=== PATIENT | male | born 1965 | race Caucasian/White ===

== ENCOUNTER 2017-08-13 12:53 | Emergency (ER) | payer OTHER ==
[2017-08-13] MEDS ORDERED: SODIUM CHLORIDE 0.9% 1,000 ML IV ONE ×2 (14:07→17:14)
[2017-08-13] MEDS ORDERED: HYDROmorphone 1 MG/ML SYRINGE IVP STA (14:07)
[2017-08-13] MEDS ORDERED: ONDANSETRON 4 MG/2 ML VIAL IVP STA (14:07)
--- NOTE | 2017-08-13 14:11 | ED Physician Documentation ---
PD HPI ABD PAIN - Stated complaint Stated Complaint: SIDE PX - Chief complaint Chief Complaint: General - History obtained from History obtained from: Patient - History of Present Illness Timing - onset: Today Timing - duration: Hours Timing - details: Abrupt onset, Still present Quality: Sharp, Pain Location: LUQ Radiation: Lower back, Left flank Improved by: Laying still Associated symptoms: Nausea Similar symptoms before: Diagnosis (uric acid kidney stones) Recently seen: Not recently seen - Additional information Additional information: 51-year-old [place] who has a history of uric acid stones and a prior history of PTSD and CVA with left-sided deficit has developed acute left-sided pain today. He has had stone retrieval previously he has had stent placement previously and has been more than 1 year since he has passed a stone. He is previously passed about 3-4 stones per year. Review of Systems Constitutional: denies: Fever Eyes: denies: Decreased vision Ears: denies: Ear pain Nose: denies: Congestion Throat: denies: Sore throat Cardiac: denies: Chest pain / pressure Respiratory: denies: Dyspnea, Cough GI: reports: Abdominal Pain, Nausea. denies: Vomiting, Constipation, Diarrhea : denies: Dysuria, Frequency Skin: denies: Rash, Lesions Musculoskeletal: reports: Back pain. denies: Neck pain, Extremity pain Neurologic: denies: Generalized weakness, Focal weakness, Numbness PD PAST MEDICAL HISTORY - Past Medical History Cardiovascular: Congestive heart failure, Hypertension, High cholesterol, Other Respiratory: Asthma, Shortness of breath, Sleep apnea, CPAP use Neuro: CVA Endocrine/Autoimmune: Type 2 diabetes GI: Diverticulitis, Other : Incontinence, Kidney stones HEENT: Other Psych: Depression, Anxiety, Post traumatic stress disorder Musculoskeletal: Osteoarthritis, Gout, Other Derm: Other - Past Surgical History Past Surgical History: Yes General: Gastric surgery, Colonoscopy, Other - Present Medications Home Medications: Ambulatory Orders Medication Instructions Recorded Confirmed Allopurinol 450 mg PO DAILY 03/25/13 08/13/17 Amlodipine Besylate 10 mg PO DAILY 03/25/13 08/13/17 Aspirin Chewable [St Dipesh 81 mg PO DAILY 03/25/13 08/13/17 Aspirin] Atorvastatin Calcium 20 mg PO DAILY 03/25/13 08/13/17 Carvedilol [Coreg] 25 mg PO BID 03/25/13 08/13/17 Fluticasone 220 Mcg [Flovent] 1 puffs INH BID 03/25/13 08/13/17 Telmisartan [Micardis] 80 mg PO DAILY 03/25/13 08/13/17 Omeprazole [Prilosec] 40 mg PO HS 10/04/13 08/13/17 Beclomethasone Dipropionate [Qvar] 1 puffs INH DAILY PRN 07/23/14 08/13/17 Multivitamin [Multivitamins] 1 cap ORAL DAILY 07/23/14 08/13/17 Oxycodone HCl/Acetaminophen 1 tab ORAL QID PRN 07/23/14 08/13/17 [Percocet 10-325 mg Tablet] Vit D3-Vit K/Berberine/Hops 1 tab ORAL DAILY 07/23/14 07/23/14 [Ostera Tablet] - Allergies Allergies/Adverse Reactions: Allergies Allergy/AdvReac Type Severity Reaction Status Date / Time Penicillins AdvReac Severe Respiratory Verified 08/13/17 13:04 hydrochlorothiazide AdvReac Unknown Verified 08/13/17 13:04 lisinopril AdvReac Respiratory Verified 08/13/17 13:04 - Social History Does the pt smoke?: No Smoking Status: Never smoker Does the pt drink ETOH?: No Does the pt have substance abuse?: No - Immunizations Immunizations are current?: Yes PD ED PE NORMAL - Vitals Vital signs reviewed: Yes (Hypertensive marked) - General General: Alert and oriented X 3, Well developed/nourished, Other (The patient is periodically grunting in pain. ) - HEENT HEENT: Atraumatic, PERRL, EOMI - Neck Neck: Supple, no meningeal sign - Cardiac Cardiac: RRR, No murmur - Respiratory Respiratory: No respiratory distress - Abdomen Abdomen: Soft, Non tender, No organomegaly - Back Back: No CVA TTP, No spinal TTP - Derm Derm: Normal color, Warm and dry, No rash - Extremities Extremities: No deformity, No edema - Neuro Neuro: No motor deficit, No sensory deficit Eye Opening: Spontaneous Motor: Obeys Commands Verbal: Oriented GCS Score: 15 - Psych Psych: Normal mood, Normal affect Results - Vitals Vitals: Vital Signs - 24 hr 08/13/17 08/13/17 08/13/17 13:01 14:51 16:16 Temperature 36.9 C Heart Rate 89 101 H 94 Respiratory 20 20 18 Rate Blood Pressure 191/118 H 211/116 H 203/115 H O2 Saturation 98 95 99 08/13/17 08/13/17 08/13/17 16:42 17:05 17:20 Temperature Heart Rate 94 Respiratory 18 Rate Blood Pressure 194/113 H 197/111 H 192/120 H O2 Saturation 96 Oxygen O2 Source Room air - Labs Labs: Laboratory Tests 08/13/17 08/13/17 08/13/17 14:39 14:39 14:39 WBC 13.7 H RBC 5.28 Hgb 16.0 Hct 46.7 MCV 88.3 MCH 30.4 MCHC 34.4 RDW 12.6 Plt Count 214 MPV 10.1 Neut # 11.8 H Lymph # 1.0 L Pratt # 0.7 Eos # 0.0 Baso # 0.1 Absolute Nucleated RBC 0.03 Nucleated RBC % 0.2 Sodium 138 Potassium 4.0 Chloride 101 Carbon Dioxide 25 Anion Gap 12.0 BUN 13 Creatinine 0.9 Estimated GFR (MDRD) 89 Glucose 139 H Calcium 9.0 Total Bilirubin 0.7 AST 24 ALT 17 Alkaline Phosphatase 88 Troponin I < 0.04 Total Protein 7.9 Albumin 4.5 Globulin 3.4 Albumin/Globulin Ratio 1.3 Lipase 10 L - Rads (name of study) CT abd/pel without Radiology: Prelim report reviewed (Impression: 1. Bilateral nephrolithiasis. 5 x 8 x 8 mm stone left mid renal pelvis which may be causing intermittent obstruction at the left ureteropelvic junction. 2. 2.5 x 1.0 cm right adrenal adenoma. 3. Colonic diverticulosis.), EMP read indepedently, See rad report Procedures - Bedside sono Bedside sono by EMP: With use of bedside ultrasound the left kidney is imaged there does appear to be some hydronephrosis and the kidney is sonographically nontender. PD MEDICAL DECISION MAKING - ED course Complexity details: reviewed old records, reviewed results, re-evaluated patient , considered differential, d/w patient Departure - Departure Clinical Impression: Ureterolithiasis Condition: Stable Instructions: ED Stone Renal W Colic Follow-Up: Pato Abebe MD [Primary Care Provider] - Comments: Today it appears you have a large stone 6 x 8 mm at the junction of the collecting system and the ureter. This stone looks like it is trying to make its way through but is likely going to have some difficulty passing. Follow-up with urologist this week.
[2017-08-13 14:43] LABS: BASOPHILS # (AUTO) 0.1 10^3/uL (0.0-0.1); BASOPHILS % (AUTO) 0.4 %; EOSINOPHILS % (AUTO) 0.2 %; LYMPHOCYTES % (AUTO) 7.6 %; MEAN CORPUSCULAR HEMOGLOBIN 30.4 pg (27.0-31.0); MEAN CORPUSCULAR HGB CONC 34.4 g/dL (32.0-36.0); MEAN CORPUSCULAR VOLUME 88.3 fL (80.0-94.0); MEAN PLATELET VOLUME 10.1 fL (7.4-11.4); MONOCYTES # (AUTO) 0.7 10^3/uL (0.0-1.0); MONOCYTES % (AUTO) 5.2 %; NEUTROPHILS # (AUTO) 11.8 10^3/uL (1.5-6.6); NEUTROPHILS % (AUTO) 86.6 %; PLT - PLATELET COUNT 214 10^3/uL (130-450); RED BLOOD COUNT 5.28 10^6/uL (4.70-6.10); RED CELL DISTRIBUTION WIDTH 12.6 % (12.0-15.0); WHITE BLOOD COUNT 13.7 x10^3/uL (4.8-10.8)
--- NOTE | 2017-08-13 14:52 | CT Preliminary Report ---
Exam: CT ABDOMEN/PELVIS W/O IMPRESSION: 1. Bilateral nephrolithiasis. 5 x 8 x 8 mm stone mid left renal pelvis which may be causing intermitt ent obstruction at the left ureteropelvic junction. 2. 2.5 x 1.0 cm right adrenal adenoma. 3. Colonic diverticulosis. [facility] SITE ID: [id number]
[2017-08-13 14:59] LABS: ALBUMIN 4.5 g/dL (3.2-5.5); ALBUMIN/GLOBULIN RATIO 1.3 (1.0-2.2); BILIRUBIN,TOTAL 0.7 mg/dL (0.2-1.0); CREATININE 0.9 mg/dL (0.6-1.2); TOTAL PROTEIN 7.9 g/dL (6.7-8.2)
--- NOTE | 2017-08-13 15:00 | CT Report ---
EXAM: CT ABDOMEN AND PELVIS EXAM DATE: 08/13/2017 02:27 PM. CLINICAL HISTORY: History of stones. Left flank pain which began this morning. COMPARISONS: 03/26/2013. Chest CT 10/04/2013. TECHNIQUE: Routine helical CT imaging was performed through the abdomen and pelvis. IV contrast: Amt/ type. Enteric contrast: No. Reconstructions: Coronal and sagittal. In accordance with CT protocol optimization, one or more of the following dose reduction techniques w ere utilized for this exam: automated exposure control, adjustment of mA and/or KV based on patient s ize, or use of iterative reconstructive technique. FINDINGS: Lung Bases: Current study does not include the area where the equivocal 3 mm subpleural density right lower lobe was noted on the chest CT. Lung bases are clear. Liver: Normal. No masses. Gallbladder/Bile Ducts: Cholecystectomy. No biliary duct dilatation. Spleen: Normal. Pancreas: Normal. Adrenal Glands: Stable 2.5 x 1.0 cm low density lesion right adrenal measuring -51 Hounsfield units c onsistent with adenoma. 1 x 3 mm calcification along the rim of this lesion. Normal left adrenal. Kidneys: Multiple 3 mm and smaller stones in the right calyceal system. Right kidney and right ureter otherwise normal. Multiple 8 mm and smaller stones in the normal caliber left calyceal system. 8 x 5 x 8 mm stone mid l eft renal pelvis. 2 cm left renal cyst. Mild left peripelvic and left perirenal edema. Left ureter is normal. Peritoneal Cavity/Bowel: Interval removal of the lap band. New bariatric surgery. Diverticuli off the colon. Large and small bowel normal caliber without associated inflammatory easley es. No free air, fluid nor adenopathy. The appendix is well visualized and normal. Pelvic Organs: Normal. The bladder and visualized pelvic organs are within normal limits. Vasculature: No aneurysms or other significant abnormality. Bones: No significant abnormality. Other: None. IMPRESSION: 1. Bilateral nephrolithiasis. 5 x 8 x 8 mm stone mid left renal pelvis, which may be causing intermit tent obstruction at the left ureteropelvic junction. 2. 2.5 x 1.0 cm right adrenal adenoma. 3. Colonic diverticulosis. [facility] Referring Provider Line: [phone] SITE ID: [id number]
[2017-08-13] MEDS ORDERED: LIDOCAINE VISCOUS 2% 15 ML UDC MM STA (15:25)
[2017-08-13] MEDS ORDERED: MAG HYDROX/AL HYDROX/SIMETH 30 ML UDC PO STA (15:25)
[2017-08-13] MEDS ORDERED: CARVEDILOL 12.5 MG TABLET PO STA (16:21)
[2017-08-13] MEDS ORDERED: amLODIPine 5 MG TABLET PO STA (16:23)
[2017-08-13] MEDS ORDERED: PANTOPRAZOLE 40 MG VIAL IVP STA (18:03)
[2017-08-13 18:29] LABS: BILIRUBIN,URINE NEGATIVE (NEGATIVE); GLUCOSE, URINE (UA) NEGATIVE (NEGATIVE); KETONES,URINE (UA) NEGATIVE (NEGATIVE); LEUKOCYTE ESTERASE, URINE NEGATIVE (NEGATIVE); NITRITE,URINE NEGATIVE (NEGATIVE); OCCULT BLOOD,URINE TRACE-LYSE (NEGATIVE); PH,URINE 5.5 PH (5.0-7.5); PROTEIN,URINE NEGATIVE (NEGATIVE); UROBILINOGEN,URINE 0.2 (NORMAL) E.U./dL (NORMAL)
[2017-08-13 18:31] LABS: CLARITY,URINE CLEAR (CLEAR)
[2017-08-13] MEDS ORDERED: LIDOCAINE-MPF 2% 8 ML in SODIUM CHLORIDE 0.9% 50 ML IV STA (19:01)
[2017-08-13 20:06] VITALS: BP 153/87
--- NOTE | 2017-08-13 20:13 | ED Physician Documentation ---
ED Addendum - Addendum Addendum: 08/13/17 20:11 Called for increased pain. Given IV lidocaine with resolution of pain. Has oxycodone at home, but will run out. Will rx a small amount for home. No UTI on UA. Will follow up with PCP and urology for further care. Patient counseled regarding signs and symptoms for which I believe and urgent re-evaluation would be necessary. Patient with good understanding of and agreement to plan and is comfortable going home at this time This document was made in part using voice recognition software. While efforts are made to proofread this document, sound alike and grammatical errors may occur. Departure - Departure Disposition: Home, Self Care Clinical Impression: Ureterolithiasis Condition: Stable Instructions: ED Stone Renal W Colic Follow-Up: Pato Abebe MD [Primary Care Provider] - Prescriptions: Ibuprofen [Motrin] 800 mg PO Q8H PRN #30 tablet PRN Reason: PAIN &/OR FEVER Oxycodone HCl/Acetaminophen [Percocet 5-325 mg Tablet] 1 - 2 each PO Q6H PRN # 20 tablet PRN Reason: pain Comments: Today it appears you have a large stone 6 x 8 mm at the junction of the collecting system and the ureter. This stone looks like it is trying to make its way through but is likely going to have some difficulty passing. Follow-up with urologist this week. Do not drink alcohol or drive while on narcotic pain medicine. Note that many narcotic pain relievers also contain tylenol/acetaminophen. Please ensure that your total dose of acetaminophen from all sources does not exceed 3 grams (3000mg) per day. You may constipated on this medication, take a stool softener such as "Colace" twice a day while you are on it. Also recommend a eftd-nse-aqgrzav laxative such as senna or MiraLAX any day that you do not have a bowel movement. If you received narcotic pain medication in the emergency department, do not drive or operate machinery for the next 24 hours. Discharge Date/Time: 08/13/17 20:25
== END 2017-08-13 20:25 | disposition home or self-care (01) ==
LOC: ED 12:53
DX: N20.1 Calculus of ureter (principal); I11.0 Hypertensive heart disease with heart failure; I50.9 Heart failure, unspecified; E78.00 Pure hypercholesterolemia, unspecified; I69.998 Other sequelae following unspecified cerebrovascular disease; Z79.82 Long term (current) use of aspirin
CPT/HCPCS: 36415; 74176; 80053; 81003; 83690; 84484; 85025; 96361; 96374; 96375; 99284; A9270; J1170; J7040; 81001; 87086

== ENCOUNTER 2017-08-19 10:06 | Emergency (ER) | payer OTHER ==
[2017-08-19] MEDS ORDERED: SALINE ENEMA 133 ML BOTTLE RC STA (11:08)
--- NOTE | 2017-08-19 11:10 | ED Physician Documentation ---
PD HPI ABD PAIN - Stated complaint Stated Complaint: MALE /CONSTIPATED - Chief complaint Chief Complaint: Abd Pain - History obtained from History obtained from: Patient - History of Present Illness Timing - onset: How many days ago (7) - Additional information Additional information: 51-year-old male with a recent kidney stone has developed acute constipation over the past week. He has had to increase his usual dose of narcotic pain reliever for this stone. He has been into see the urologist he has had the stone lasered and a stent placed and he has improvement in that pain. Review of Systems Constitutional: denies: Fever, Myalgias, Fatigue Eyes: denies: Decreased vision Ears: denies: Ear pain Nose: denies: Congestion Throat: denies: Sore throat Cardiac: denies: Chest pain / pressure, Palpitations Respiratory: denies: Dyspnea, Cough GI: reports: Abdominal Pain, Nausea, Constipation. denies: Vomiting : denies: Dysuria, Frequency Skin: denies: Rash Musculoskeletal: denies: Neck pain, Back pain, Extremity pain PD PAST MEDICAL HISTORY - Past Medical History Past Medical History: Yes Cardiovascular: Congestive heart failure, Hypertension, High cholesterol, Other Respiratory: Asthma, Shortness of breath, Sleep apnea, CPAP use Neuro: CVA Endocrine/Autoimmune: Type 2 diabetes GI: Diverticulitis, Other : Incontinence, Kidney stones HEENT: Other Psych: Depression, Anxiety, Post traumatic stress disorder Musculoskeletal: Osteoarthritis, Gout, Other Derm: Other - Past Surgical History Past Surgical History: Yes General: Gastric surgery, Colonoscopy, Other - Present Medications Home Medications: Ambulatory Orders Medication Instructions Recorded Confirmed Allopurinol 450 mg PO DAILY 03/25/13 08/13/17 Amlodipine Besylate 10 mg PO DAILY 03/25/13 08/13/17 Atorvastatin Calcium 20 mg PO DAILY 03/25/13 08/13/17 Carvedilol [Coreg] 25 mg PO BID 03/25/13 08/13/17 Fluticasone 220 Mcg [Flovent] 1 puffs INH BID 03/25/13 08/13/17 Telmisartan [Micardis] 80 mg PO DAILY 03/25/13 08/13/17 Omeprazole [Prilosec] 40 mg PO HS 10/04/13 08/13/17 Beclomethasone Dipropionate [Qvar] 1 puffs INH DAILY PRN 07/23/14 08/13/17 Multivitamin [Multivitamins] 1 cap ORAL DAILY 07/23/14 08/13/17 Oxycodone HCl/Acetaminophen 1 tab ORAL QID PRN 07/23/14 08/13/17 [Percocet 10-325 mg Tablet] Vit D3-Vit K/Berberine/Hops 1 tab ORAL DAILY 07/23/14 07/23/14 [Ostera Tablet] Ibuprofen [Motrin] 800 mg PO Q8H PRN #30 tablet 08/13/17 Oxycodone HCl/Acetaminophen 1 - 2 each PO Q6H PRN #20 tablet 08/13/17 [Percocet 5-325 mg Tablet] Lactulose [Generlac] 10 gm PO Q6HR PRN #200 ml 08/19/17 - Allergies Allergies/Adverse Reactions: Allergies Allergy/AdvReac Type Severity Reaction Status Date / Time Penicillins AdvReac Severe Respiratory Verified 08/19/17 10:25 hydrochlorothiazide AdvReac Unknown Verified 08/19/17 10:25 lisinopril AdvReac Respiratory Verified 08/19/17 10:25 - Social History Does the pt smoke?: No Smoking Status: Never smoker Does the pt drink ETOH?: No Does the pt have substance abuse?: No - Immunizations Immunizations are current?: Yes PD ED PE NORMAL - Vitals Vital signs reviewed: Yes (hypertensive ) - General General: Alert and oriented X 3, Well developed/nourished, Other (The patient appears uncomfortable ) - HEENT HEENT: Atraumatic, PERRL, EOMI - Neck Neck: Supple, no meningeal sign - Cardiac Cardiac: RRR, No murmur - Respiratory Respiratory: No respiratory distress, Clear bilaterally - Abdomen Abdomen: Soft, Other (mild general tenderness without guarding ) - Back Back: No CVA TTP, No spinal TTP - Derm Derm: Normal color, No rash - Extremities Extremities: No deformity - Neuro Neuro: Alert and oriented X 3, Normal speech Eye Opening: Spontaneous Motor: Obeys Commands Verbal: Oriented GCS Score: 15 - Psych Psych: Normal mood, Normal affect Results - Vitals Vitals: Vital Signs - 24 hr 08/19/17 10:19 Temperature 36.8 C Heart Rate 100 Respiratory 20 Rate Blood Pressure 207/119 H O2 Saturation 96 Oxygen O2 Source Room air PD MEDICAL DECISION MAKING - ED course Complexity details: reviewed old records, reviewed results, re-evaluated patient , considered differential, d/w patient, d/w family ED course: 51-year-old male on narcotic with a recent kidney stone has been into see the urologist and has had a stent placed and had his stone lasered and this appears to be improving. He has developed constipation and has not had a bowel movement in 1 week. He feels very bloated and distended and has some general discomfort in his abdomen. He has not passed flatus. Here in the emergency department is administered a fleets saline enema without relief and he is subsequently administered a soapsuds enema and following each 1 of these enemas the patient has had a significant amount of gas which is relieved his symptoms. He is administered milk of magnesia and is waiting in the emergency department he is having no symptoms now and would like to go home. Departure - Departure Disposition: 01 Home, Self Care Clinical Impression: Constipation Qualifiers: Constipation type: drug induced constipation Qualified Code(s): K59.03 - Drug induced constipation Condition: Stable Instructions: ED Constipation Follow-Up: Pato Abebe MD [Primary Care Provider] - Prescriptions: Lactulose [Generlac] 10 gm PO Q6HR PRN #200 ml PRN Reason: constipation
[2017-08-19] MEDS ORDERED: SOAP SUDS ENEMA 1 EACH RC ONE (11:57)
[2017-08-19] MEDS ORDERED: MAGNESIUM HYDROXIDE 2,400 MG/30 ML UDC PO STA (13:25)
[2017-08-19 14:28] VITALS: BP 186/119
== END 2017-08-19 14:42 | disposition home or self-care (01) ==
LOC: ED 10:06
DX: K59.03 Drug induced constipation (principal); I11.0 Hypertensive heart disease with heart failure; I50.9 Heart failure, unspecified; E78.00 Pure hypercholesterolemia, unspecified; J45.909 Unspecified asthma, uncomplicated; G47.30 Sleep apnea, unspecified; E11.9 Type 2 diabetes mellitus without complications; Z86.73 Personal history of transient ischemic attack (TIA), and cerebral infarction without residual deficits
CPT/HCPCS: 99283; A9270

== ENCOUNTER 2018-12-31 16:29 | Emergency (ER) | payer OTHER ==
[2018-12-31 17:06] LABS: BASOPHILS # (AUTO) 0.1 10^3/uL (0.0-0.1); BASOPHILS % (AUTO) 0.5 %; EOSINOPHILS # (AUTO) 0.1 10^3/uL (0.0-0.7); EOSINOPHILS % (AUTO) 1.2 %; HGB - HEMOGLOBIN 15.3 g/dL (14.0-18.0); LYMPHOCYTES # (AUTO) 1.5 10^3/uL (1.5-3.5); LYMPHOCYTES % (AUTO) 14.9 %; MEAN CORPUSCULAR HEMOGLOBIN 30.2 pg (27.0-31.0); MEAN CORPUSCULAR HGB CONC 33.3 g/dL (32.0-36.0); MEAN CORPUSCULAR VOLUME 90.9 fL (80.0-94.0); MEAN PLATELET VOLUME 10.9 fL (7.4-11.4); MONOCYTES # (AUTO) 0.5 10^3/uL (0.0-1.0); MONOCYTES % (AUTO) 5.1 %; NEUTROPHILS # (AUTO) 7.6 10^3/uL (1.5-6.6); NEUTROPHILS % (AUTO) 77.9 %; PLT - PLATELET COUNT 258 10^3/uL (130-450); RED BLOOD COUNT 5.06 10^6/uL (4.70-6.10); RED CELL DISTRIBUTION WIDTH 12.2 % (12.0-15.0); WHITE BLOOD COUNT 9.7 x10^3/uL (4.8-10.8)
[2018-12-31] MEDS ORDERED: KETOROLAC 30 MG/ML VIAL IVP STA (17:24)
[2018-12-31] MEDS ORDERED: diphenhydrAMINE INJ 50 MG/ML VIAL IVP STA (17:24)
[2018-12-31] MEDS ORDERED: PROCHLORPERAZINE 10 MG/2 ML VIAL IVP STA (17:24)
[2018-12-31 17:26] LABS: ALBUMIN 4.2 g/dL (3.2-5.5); ALBUMIN/GLOBULIN RATIO 1.3 (1.0-2.2); BILIRUBIN,TOTAL 0.6 mg/dL (0.2-1.0); CREATININE 0.9 mg/dL (0.6-1.2); TOTAL PROTEIN 7.4 g/dL (6.7-8.2)
--- NOTE | 2018-12-31 17:30 | CT Report ---
Reason: headache Procedure Date: 12/31/2018 Accession Number: [id number] / [id number] Procedure: CT - HEAD WO CPT Code: FULL RESULT: EXAM: CT HEAD EXAM DATE: 12/31/2018 05:16 PM. CLINICAL HISTORY: Headache. COMPARISON: None. TECHNIQUE: Multiaxial CT images were obtained from the foramen magnum to the vertex. Reformats: Sagittal and coronal. IV contrast: None. In accordance with CT protocol optimization, one or more of the following dose reduction techniques were utilized for this exam: automated exposure control, adjustment of mA and/or KV based on patient size, or use of iterative reconstructive technique. FINDINGS: Parenchyma: No intraparenchymal hemorrhage. No evidence of mass, midline shift, or CT findings of infarction. Ellison-white differentiation is distinct. Extraaxial Spaces: Normal for age. No subdural or epidural collections. Ventricles: Normal in size and position. Sinuses and Orbits: Imaged paranasal sinuses, orbits, and mastoids show no significant abnormality. Bones: Unremarkable. Other: None. IMPRESSION: Normal head CT. [facility]
[2018-12-31 17:32] LABS: PT - PROTHROMBIN TIME 11.4 secs (9.9-12.6)
--- NOTE | 2018-12-31 17:36 | ED Physician Documentation ---
History of Present Illness - Stated complaint Stated Complaint: HBP/MARSHALL/NAUSEA - Chief complaint Chief Complaint: General - History obtained from History obtained from: Patient, Family - History of Present Illness Timing: Today Pain level max: 9 Pain level now: 9 Improved by: nothing Worsened by: movement. light - Additonal information Additional information: L sided, throbbing, aching, headache. gradual onset. no trauma. no fever. has not taken anything. Is non-compliant with his medications, but did take his BP meds after developing the headache. Review of Systems Constitutional: denies: Fever, Chills Ears: denies: Ear pain Nose: denies: Rhinorrhea / runny nose, Congestion Throat: denies: Sore throat Cardiac: denies: Chest pain / pressure GI: denies: Vomiting, Diarrhea Skin: denies: Rash Musculoskeletal: denies: Neck pain, Back pain Neurologic: denies: Focal weakness, Numbness, Confused, Altered mental status, LOC PD PAST MEDICAL HISTORY - Past Medical History Past Medical History: Yes Cardiovascular: Congestive heart failure, Hypertension, High cholesterol, Other Respiratory: Asthma, Shortness of breath, Sleep apnea, CPAP use Neuro: CVA Endocrine/Autoimmune: Type 2 diabetes GI: Diverticulitis, Other : Incontinence, Kidney stones HEENT: Other Psych: Depression, Anxiety, Post traumatic stress disorder Musculoskeletal: Osteoarthritis, Gout, Other Derm: Other - Past Surgical History Past Surgical History: Yes General: Gastric surgery, Colonoscopy, Other - Present Medications Home Medications: Ambulatory Orders Medication Instructions Recorded Confirmed Allopurinol 450 mg PO DAILY 03/25/13 08/13/17 Amlodipine Besylate 10 mg PO DAILY 03/25/13 08/13/17 Atorvastatin Calcium 20 mg PO DAILY 03/25/13 08/13/17 Carvedilol [Coreg] 25 mg PO BID 03/25/13 08/13/17 Fluticasone 220 Mcg [Flovent] 1 puffs INH BID 03/25/13 08/13/17 Telmisartan [Micardis] 80 mg PO DAILY 03/25/13 08/13/17 Omeprazole [Prilosec] 40 mg PO HS 10/04/13 08/13/17 Beclomethasone Dipropionate [Qvar] 1 puffs INH DAILY PRN 07/23/14 08/13/17 Multivitamin [Multivitamins] 1 cap ORAL DAILY 07/23/14 08/13/17 Oxycodone HCl/Acetaminophen 1 tab ORAL QID PRN 07/23/14 08/13/17 [Percocet 10-325 mg Tablet] Vit D3-Vit K/Berberine/Hops 1 tab ORAL DAILY 07/23/14 07/23/14 [Ostera Tablet] Ibuprofen [Motrin] 800 mg PO Q8H PRN #30 tablet 08/13/17 Oxycodone HCl/Acetaminophen 1 - 2 each PO Q6H PRN #20 tablet 08/13/17 [Percocet 5-325 mg Tablet] Lactulose [Generlac] 10 gm PO Q6HR PRN #200 ml 08/19/17 - Allergies Allergies/Adverse Reactions: Allergies Allergy/AdvReac Type Severity Reaction Status Date / Time Penicillins AdvReac Severe Respiratory Verified 12/31/18 16:47 hydrochlorothiazide AdvReac Unknown Verified 12/31/18 16:47 lisinopril AdvReac Respiratory Verified 12/31/18 16:47 - Social History Does the pt smoke?: No Smoking Status: Never smoker Does the pt drink ETOH?: No Does the pt have substance abuse?: No - Immunizations Immunizations are current?: Yes PD ED PE NORMAL - Vitals Vital signs reviewed: Yes - General General: Alert and oriented X 3, No acute distress, Well developed/nourished - HEENT HEENT: Atraumatic, PERRL, Ears normal, Moist mucous membranes, Pharynx benign - Neck Neck: Supple, no meningeal sign - Cardiac Cardiac: RRR, Strong equal pulses - Respiratory Respiratory: No respiratory distress, Clear bilaterally - Abdomen Abdomen: Soft, Non tender, Non distended - Derm Derm: Warm and dry - Extremities Extremities: No edema - Neuro Neuro: Alert and oriented X 3, 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, No motor deficit, No sensory deficit, Normal speech - Psych Psych: Normal mood, Normal affect Results - Vitals Vitals: Vital Signs - 24 hr 12/31/18 12/31/18 12/31/18 16:42 17:00 17:37 Temperature 36.8 C Heart Rate 62 64 69 Respiratory 16 16 16 Rate Blood Pressure 199/115 H 211/124 H 204/127 H O2 Saturation 97 99 99 12/31/18 18:11 Temperature Heart Rate 67 Respiratory 16 Rate Blood Pressure 190/102 H O2 Saturation 100 Oxygen O2 Source Room air - Labs Labs: Laboratory Tests 12/31/18 12/31/18 12/31/18 17:01 17:01 17:01 WBC 9.7 RBC 5.06 Hgb 15.3 Hct 46.0 MCV 90.9 MCH 30.2 MCHC 33.3 RDW 12.2 Plt Count 258 MPV 10.9 Neut # (Auto) 7.6 H Lymph # (Auto) 1.5 Glasscock # (Auto) 0.5 Eos # (Auto) 0.1 Baso # (Auto) 0.1 Absolute Nucleated RBC 0.00 Nucleated RBC % 0.0 PT 11.4 INR 1.0 APTT 30.9 Sodium 144 Potassium 4.1 Chloride 102 Carbon Dioxide 29 Anion Gap 13.0 BUN 17 Creatinine 0.9 Estimated GFR (MDRD) 88 L Glucose 110 H Calcium 9.0 Total Bilirubin 0.6 AST 18 ALT 17 Alkaline Phosphatase 73 Total Protein 7.4 Albumin 4.2 Globulin 3.2 Albumin/Globulin Ratio 1.3 Lipase 29 - Rads (name of study) Head CT Radiology: Prelim report reviewed, EMP read contemporaneously, See rad report (No acute intracranial abnormality) PD MEDICAL DECISION MAKING - ED course Complexity details: reviewed results, re-evaluated patient, considered differential, d/w patient, d/w family ED course: Patient with a headache and hypertension today. Blood pressure decreased on its own. Headache was treated with Toradol, Compazine and Benadryl. Headache resolved. No acute findings on CT scan. No evidence of subarachnoid hemorrhage. No neck stiffness. No fevers. We will follow-up with PCP for further care. Patient was encouraged to take his medications as prescribed. Patient and family counseled regarding signs and symptoms for which I believe and urgent re-evaluation would be necessary. Patient with good understanding of and agreement to plan and is comfortable going home at this time This document was made in part using voice recognition software. While efforts are made to proofread this document, sound alike and grammatical errors may occur. Departure - Departure Disposition: 01 Home, Self Care Clinical Impression: Headache Qualifiers: Headache type: unspecified Headache chronicity pattern: acute headache Intractability: not intractable Qualified Code(s): R51 - Headache Hypertension Qualifiers: Hypertension type: unspecified Qualified Code(s): I10 - Essential (primary) hypertension Condition: Good Instructions: ED Cephalgia Unspecified Follow-Up: your,doctor in 1 week [Other] Comments: You should start taking your blood pressure medications as prescribed at home. Return if you worsen. Discharge Date/Time: 12/31/18 18:36
[2018-12-31 17:39] LABS: PARTIAL THROMBOPLASTIN TIME 30.9 secs (24.9-33.3)
[2018-12-31 18:16] VITALS: BP 190/102
== END 2018-12-31 18:36 | disposition home or self-care (01) ==
LOC: ED 16:29
DX: R51 Headache (principal); I10 Essential (primary) hypertension; E11.9 Type 2 diabetes mellitus without complications; Z91.14 Patient's other noncompliance with medication regimen
CPT/HCPCS: 70450; 80053; 83690; 85025; 85610; 85730; 96374; 99283; 99284; J1200

== ENCOUNTER 2019-12-30 16:59 | Emergency (ER) | payer OTHER ==
[2019-12-30] MEDS ORDERED: TETANUS/DIPHTHERIA/PERTUSSIS 0.5 ML SYRINGE IM ONE (17:36)
--- NOTE | 2019-12-30 17:36 | ED Physician Documentation ---
PD HPI LOWER EXT INJURY - Stated complaint Stated Complaint: RT BIG TOE LAC - Chief complaint Chief Complaint: Laceration - History of Present Illness PD HPI LOW EXT INJURY LOCATION: Right, Toe Type of injury: Blunt / blow Timing - onset: How many hours ago (3) - Additional information Additional information: 54-year-old male presents to the emergency department with acute right great toe injury. Gentleman has a history of left-sided hemiparesis. He was attempting to load his motorized wheelchair into the van and the ramp fell crushing the right great toe. Unknown last tetanus PD PAST MEDICAL HISTORY - Past Medical History Past Medical History: Yes Cardiovascular: Congestive heart failure, Hypertension, High cholesterol, Other Respiratory: Asthma, Shortness of breath, Sleep apnea, CPAP use Neuro: CVA Endocrine/Autoimmune: Type 2 diabetes GI: Diverticulitis, Other : Incontinence, Kidney stones HEENT: Other Psych: Depression, Anxiety, Post traumatic stress disorder Musculoskeletal: Osteoarthritis, Gout, Other Derm: Other - Past Surgical History Past Surgical History: Yes General: Gastric surgery, Colonoscopy, Other - Present Medications Home Medications: Ambulatory Orders Medication Instructions Recorded Confirmed Amlodipine Besylate 10 mg PO DAILY 03/25/13 08/13/17 Atorvastatin Calcium 20 mg PO DAILY 03/25/13 08/13/17 Fluticasone 220 Mcg [Flovent] 1 puffs INH BID 03/25/13 08/13/17 Telmisartan [Micardis] 80 mg PO DAILY 03/25/13 08/13/17 allopurinoL [Allopurinol] 450 mg PO DAILY 03/25/13 08/13/17 carvediloL [Coreg] 25 mg PO BID 03/25/13 08/13/17 Omeprazole [Prilosec] 40 mg PO HS 10/04/13 08/13/17 Beclomethasone Dipropionate [Qvar] 1 puffs INH DAILY PRN 07/23/14 08/13/17 Multivitamin [Multivitamins] 1 cap ORAL DAILY 07/23/14 08/13/17 Oxycodone HCl/Acetaminophen 1 tab ORAL QID PRN 07/23/14 08/13/17 [Percocet 10-325 mg Tablet] Vit D3-Vit K/Berberine/Hops 1 tab ORAL DAILY 07/23/14 07/23/14 [Ostera Tablet] Ibuprofen [Motrin] 800 mg PO Q8H PRN #30 tablet 08/13/17 Oxycodone HCl/Acetaminophen 1 - 2 each PO Q6H PRN #20 tablet 08/13/17 [Percocet 5-325 mg Tablet] Lactulose [Generlac] 10 gm PO Q6HR PRN #200 ml 08/19/17 Cephalexin [Keflex] 500 mg PO Q6H #28 capsule 12/30/19 Hydrocodone/Acetaminophen [Hankinson 1 each PO Q6HR PRN #20 tablet 12/30/19 5-325 Tablet] - Allergies Allergies/Adverse Reactions: Allergies Allergy/AdvReac Type Severity Reaction Status Date / Time Penicillins AdvReac Severe Respiratory Verified 12/30/19 17:03 hydrochlorothiazide AdvReac Unknown Verified 12/30/19 17:03 lisinopril AdvReac Respiratory Verified 12/30/19 17:03 - Social History Does the pt smoke?: No Smoking Status: Never smoker Does the pt drink ETOH?: No Does the pt have substance abuse?: No - Immunizations Immunizations are current?: Yes PD ED PE NORMAL - HEENT HEENT: Atraumatic, EOMI - Cardiac Cardiac: RRR - Respiratory Respiratory: No respiratory distress - Extremities Extremities: Other (right great toe swollen. Nail is lifted proximally from the nail bed with 100% subungual hematoma. 2+ DP pulse). No: No tenderness to palpate Results - Vitals Vitals: Vital Signs - 24 hr 12/30/19 17:03 Temperature 36.5 C Heart Rate 70 Respiratory 16 Rate Blood Pressure 200/100 H O2 Saturation 97 Oxygen O2 Source Room air - Rads (name of study) right foot xray Radiology: Final report received Procedures - Laceration (location) right toe Wound type: Into subcut fat Neurovascular status: Sensory intact Anesthesia: Lidocaine 1% Wound Preparation: Chlorhexadine, Irrigated copiously NS Skin layer closure: Nylon, Sutures - enter # (2), Other (Right great nail removed after digital bocl Macerated right nailbed with laceration overlying open fracture. 1 cm. Wound copiously irrigated with saline. 2 four-point 0 nylon sutures were placed. Wound continued to bleed medially along the nail edges and cautery was used to control bleed.) Other: Patient tolerated well PD MEDICAL DECISION MAKING - ED course Complexity details: reviewed results, re-evaluated patient, d/w patient ED course: 54-year-old male presents to the emergency department with right great toe pain after a heavy lift gate crushed his toe. - X-ray reveals a fracture of the great toe at the distal phalanx. - He had a 100% subungual hematoma with the nail elevated. Nail was removed. The macerated nailbed was sutured with 2 four-point 0 nylon sutures. The nail continue to bleed marginally And cautery was used to control bleed.- Patient was given ceftriaxone in the emergency department as he has an allergy to penicillin. He is discharged with prescription for Keflex. - wound dressed with bacitracin and xeroform - Given the macerated appearance of the nailbed and the difficult to control bleed patient will return tomorrow in the a.m. for a wound check. Departure - Departure Disposition: 01 Home, Self Care Clinical Impression: Right foot pain Toe fracture, right Qualifiers: Encounter type: initial encounter Toe: great toe Fracture type: open Phalanx: proximal Fracture alignment: nondisplaced Qualified Code(s): S92.414B - Nondisplaced fracture of proximal phalanx of right great toe, initial encounter for open fracture Nailbed laceration, toe Qualifiers: Encounter type: initial encounter Qualified Code(s): S91.219A - Laceration without foreign body of unspecified toe(s) with damage to nail, initial encounter Condition: Stable Instructions: ED Laceration Repair Infec, ED Fx Toe Open Prescriptions: Hydrocodone/Acetaminophen [Hankinson 5-325 Tablet] 1 each PO Q6HR PRN #20 tablet PRN Reason: Pain Cephalexin [Keflex] 500 mg PO Q6H #28 capsule Comments: Ritesh your great toe is broken. However there is also a laceration over the open bone. I have sutured is much of the laceration is like hand. I would like you to return tomorrow morning for a wound check of the toe. Keep the dressing in place until then. Because this is an open fracture you have been given your first dose of antibiotics in the emergency department and you are to fill the prescription and take as directed.
[2019-12-30] MEDS ORDERED: BUFFERED LIDOCAINE 10 ML SYRINGE SUBQ STA (17:37)
[2019-12-30] MEDS ORDERED: LIDOCAINE 1% 2 ML VIAL MC ONE (18:33)
[2019-12-30] MEDS ORDERED: cefTRIAXone 1 GM VIAL IM STA (18:33)
--- NOTE | 2019-12-30 18:45 | XRAY Report ---
PROCEDURE: Foot 2 View RT INDICATIONS: Blunt force trauma with Lac to right great toe TECHNIQUE: 2 views of the foot were acquired. COMPARISON: None. FINDINGS: Bones: Fracture of the first digit distal phalanx. No intra-articular extension seen. No this locatio n. No suspicious bony lesions. Soft tissues: No radiopaque foreign body. IMPRESSION: Fracture of the first digit distal phalanx. No dislocation. Reviewed by: Darshan Schwarz MD on 12/30/2019 6:43 PM PDT Approved by: Darshan Schwarz MD on 12/30/2019 6:43 PM PDT Station ID: [id number]
[2019-12-30] MEDS ORDERED: BACITRACIN ZINC OINT 1 PACKET TOP STA (19:12)
[2019-12-30 20:02] VITALS: BP 190/110
== END 2019-12-30 20:05 | disposition home or self-care (01) ==
LOC: ED 16:59
DX: S92.424B Nondisplaced fracture of distal phalanx of right great toe, initial encounter for open fracture (principal); S91.211A Laceration without foreign body of right great toe with damage to nail, initial encounter; W23.0XXA Caught, crushed, jammed, or pinched between moving objects, initial encounter; Y93.89 Activity, other specified; Z23 Encounter for immunization; I69.354 Hemiplegia and hemiparesis following cerebral infarction affecting left non-dominant side; I10 Essential (primary) hypertension; E11.9 Type 2 diabetes mellitus without complications
CPT/HCPCS: 11730; 12001; 90471; 99281; 99283

== ENCOUNTER 2019-12-31 12:34 | Emergency (ER) | payer OTHER ==
--- NOTE | 2019-12-31 15:19 | ED Physician Documentation ---
PD HPI LOWER EXT INJURY - Stated complaint Stated Complaint: R FOOT INJURY/ASKED TO RETURN - Chief complaint Chief Complaint: Trauma Ext - History obtained from History obtained from: Patient - History of Present Illness PD HPI LOW EXT INJURY LOCATION: Right, Toe Type of injury: Blunt / blow - Additional information Additional information: 54-year-old male returns to the emergency department for wound check of his right great toe. Yesterday he sustained a crushing injury on the toe when the wheelchair lift fell onto it. He did sustain an open fracture. The toe required 100% nail removal secondary to a subungual hematoma and lifting of the nail. Underneath the nailbed was quite macerated and bleeding. 2 sutures were placed within the nailbed but bleeding continued. We attempted cautery however we were not successful in getting the full bleed to stop. Patient was given Rocephin in the emergency department yesterday and prescribed Keflex as antibiotics for the toe injury.Since being seen yesterday bleeding has persisted mildly through the initial dressing placed. Review of Systems Constitutional: denies: Fever, Chills GI: denies: Abdominal Pain Skin: reports: Lesions, Laceration (s) PD PAST MEDICAL HISTORY - Past Medical History Cardiovascular: Congestive heart failure, Hypertension, High cholesterol, Other Respiratory: Asthma, Shortness of breath, Sleep apnea, CPAP use Neuro: CVA Endocrine/Autoimmune: Type 2 diabetes GI: Diverticulitis, Other : Incontinence, Kidney stones HEENT: Other Psych: Depression, Anxiety, Post traumatic stress disorder Musculoskeletal: Osteoarthritis, Gout, Other Derm: Other - Past Surgical History Past Surgical History: Yes General: Gastric surgery, Colonoscopy, Other - Present Medications Home Medications: Ambulatory Orders Medication Instructions Recorded Confirmed Amlodipine Besylate 10 mg PO DAILY 03/25/13 08/13/17 Atorvastatin Calcium 20 mg PO DAILY 03/25/13 08/13/17 Fluticasone 220 Mcg [Flovent] 1 puffs INH BID 03/25/13 08/13/17 Telmisartan [Micardis] 80 mg PO DAILY 03/25/13 08/13/17 allopurinoL [Allopurinol] 450 mg PO DAILY 03/25/13 08/13/17 carvediloL [Coreg] 25 mg PO BID 03/25/13 08/13/17 Omeprazole [Prilosec] 40 mg PO HS 10/04/13 08/13/17 Beclomethasone Dipropionate [Qvar] 1 puffs INH DAILY PRN 07/23/14 08/13/17 Multivitamin [Multivitamins] 1 cap ORAL DAILY 07/23/14 08/13/17 Oxycodone HCl/Acetaminophen 1 tab ORAL QID PRN 07/23/14 08/13/17 [Percocet 10-325 mg Tablet] Vit D3-Vit K/Berberine/Hops 1 tab ORAL DAILY 07/23/14 07/23/14 [Ostera Tablet] Ibuprofen [Motrin] 800 mg PO Q8H PRN #30 tablet 08/13/17 Oxycodone HCl/Acetaminophen 1 - 2 each PO Q6H PRN #20 tablet 08/13/17 [Percocet 5-325 mg Tablet] Lactulose [Generlac] 10 gm PO Q6HR PRN #200 ml 08/19/17 Cephalexin [Keflex] 500 mg PO Q6H #28 capsule 12/30/19 Hydrocodone/Acetaminophen [[place] 1 each PO Q6HR PRN #20 tablet 12/30/19 5-325 Tablet] - Allergies Allergies/Adverse Reactions: Allergies Allergy/AdvReac Type Severity Reaction Status Date / Time Penicillins AdvReac Severe Respiratory Verified 12/31/19 12:47 hydrochlorothiazide AdvReac Unknown Verified 12/31/19 12:47 lisinopril AdvReac Respiratory Verified 12/31/19 12:47 - Social History Does the pt smoke?: No Smoking Status: Never smoker Does the pt drink ETOH?: No Does the pt have substance abuse?: No - Immunizations Immunizations are current?: Yes PD ED PE EXPANDED - Extremities Extremities: Right foot (Patient has a macerated right nailbed. Clot is present over the nailbed. Some bleeding persists along the cuticle edges. 2+ distal DP pulse) Results - Vitals Vitals: Vital Signs - 24 hr 12/31/19 12/31/19 12:44 15:02 Temperature 36.7 C 37.0 C Heart Rate 79 67 Respiratory 14 18 Rate Blood Pressure 204/108 H 154/88 H O2 Saturation 98 97 Oxygen O2 Source Room air PD MEDICAL DECISION MAKING - ED course Complexity details: re-evaluated patient, d/w patient ED course: 54 year old male presents To the emergency department for evaluation of her right nailbed injury. He sustained a crushing injury to the nailbed when a lift gate smashed his toe yesterday afternoon. he did sustain an open fracture of the distal phalanx given nail bed injury The nailbed received 2 sutures however bleeding persisted along the cuticle edges. The nail bed itself was fairly macerated. He returns today for wound care. - On further evaluation the nailbed continues to bleed a little bit though certainly reduced from yesterday. Gelfoam was applied to the injury to help with hemostasis. Patient is advised to leave the dressing in place for the next 3 days and at that point it should be removed and reevaluated. - Patient reports to me that he is traveling out of town to [place] to see his dying uncle. He will schedule follow-up with orthopedics when he returns. He is to continue to fill the Keflex as antibiotic prophylaxis. I discussed at length with pt that this is a high risk injury for infection and possible toe amputation - We discussed at length emergency return precautions for concerns of infection which include toe swelling red streaking fevers increased pain foul smell or purulent drainage. Departure - Departure Disposition: 01 Home, Self Care Clinical Impression: Injury of nail bed of toe Open fracture of distal phalanx of toe of right foot Qualifiers: Encounter type: subsequent encounter Toe: great toe Fracture alignment: nondisplaced Fracture healing: with routine healing Qualified Code(s): S92.424D - Nondisplaced fracture of distal phalanx of right great toe, subsequent encounter for fracture with routine healing Condition: Stable Instructions: ED Fx Toe Open Follow-Up: [facility] [Provider Group] - Within 1 week Comments: Please keep your dressing in place for the next 3 days. We have placed Gelfoam over the nailbed to help with bleeding and clot formation. Clot and scab should form on the nailbed and heel over time. There are [address] that should be removed in the next 7 to 10 days. Please continue to fill the prescription for the antibiotics and take as directed to prevent infection.Please call to schedule an appointment with orthopedics for follow-up when you return from your trip to [place]. While you are gone if you develop fevers have milky drainage foul smell to the toe increased pain then please go to the nearest immediate emergency department for further evaluation.
[2019-12-31 17:05] VITALS: BP 172/122
== END 2019-12-31 17:01 | disposition home or self-care (01) ==
LOC: ED 12:34
DX: S97.111A Crushing injury of right great toe, initial encounter (principal); S92.424B Nondisplaced fracture of distal phalanx of right great toe, initial encounter for open fracture; W24.0XXA Contact with lifting devices, not elsewhere classified, initial encounter; Z48.00 Encounter for change or removal of nonsurgical wound dressing; I10 Essential (primary) hypertension; E11.9 Type 2 diabetes mellitus without complications
CPT/HCPCS: 99281

== ENCOUNTER 2020-01-14 14:30 | Emergency (ER) | payer OTHER ==
[2020-01-14 14:38] VITALS: BP 188/105
--- NOTE | 2020-01-14 14:55 | ED Physician Documentation ---
PD HPI WOUND RECHECK - Stated complaint Stated Complaint: SUTURE REMOVAL - Chief complaint Chief Complaint: Wound - Histroy obtained from History obtained from: Patient, Other (chart) - History of Present Illness Location: Right Foot (great toe) Similar symptoms before: Diagnosis - Additional information Additional information: 54-year-old male returns to the emergency department to have sutures removed from his right great toe that were placed when a lift gate fell on it 15 days ago. He did sustain an open fracture. He was seen by this care provider. Since being seen he has completed a course of antibiotics. However he has not followed up with orthopedics as referred. In general he reports his pain as controlled. He has had no fevers. The majority of the nailbed is now closed with a thin amount of white eschar overlying. No significant toe swelling or erythema. Review of Systems Constitutional: denies: Fever, Chills Cardiac: denies: Chest pain / pressure, Palpitations Skin: reports: Lesions (right great toe) Musculoskeletal: reports: Extremity pain (right great toe) PD PAST MEDICAL HISTORY - Past Medical History Past Medical History: Yes Cardiovascular: Congestive heart failure, Hypertension, High cholesterol, Other Respiratory: Asthma, Shortness of breath, Sleep apnea, CPAP use Neuro: CVA Endocrine/Autoimmune: Type 2 diabetes GI: Diverticulitis, Other : Incontinence, Kidney stones HEENT: Other Psych: Depression, Anxiety, Post traumatic stress disorder Musculoskeletal: Osteoarthritis, Gout, Other Derm: Other - Past Surgical History Past Surgical History: Yes General: Gastric surgery, Colonoscopy, Other - Present Medications Home Medications: Ambulatory Orders Medication Instructions Recorded Confirmed Amlodipine Besylate 10 mg PO DAILY 03/25/13 08/13/17 Atorvastatin Calcium 20 mg PO DAILY 03/25/13 08/13/17 Fluticasone 220 Mcg [Flovent] 1 puffs INH BID 03/25/13 08/13/17 Telmisartan [Micardis] 80 mg PO DAILY 03/25/13 08/13/17 allopurinoL [Allopurinol] 450 mg PO DAILY 03/25/13 08/13/17 carvediloL [Coreg] 25 mg PO BID 03/25/13 08/13/17 Omeprazole [Prilosec] 40 mg PO HS 10/04/13 08/13/17 Beclomethasone Dipropionate [Qvar] 1 puffs INH DAILY PRN 07/23/14 08/13/17 Multivitamin [Multivitamins] 1 cap ORAL DAILY 07/23/14 08/13/17 Oxycodone HCl/Acetaminophen 1 tab ORAL QID PRN 07/23/14 08/13/17 [Percocet 10-325 mg Tablet] Vit D3-Vit K/Berberine/Hops 1 tab ORAL DAILY 07/23/14 07/23/14 [Ostera Tablet] Ibuprofen [Motrin] 800 mg PO Q8H PRN #30 tablet 08/13/17 Oxycodone HCl/Acetaminophen 1 - 2 each PO Q6H PRN #20 tablet 08/13/17 [Percocet 5-325 mg Tablet] Lactulose [Generlac] 10 gm PO Q6HR PRN #200 ml 08/19/17 Cephalexin [Keflex] 500 mg PO Q6H #28 capsule 12/30/19 Hydrocodone/Acetaminophen [[place] 1 each PO Q6HR PRN #20 tablet 12/30/19 5-325 Tablet] - Allergies Allergies/Adverse Reactions: Allergies Allergy/AdvReac Type Severity Reaction Status Date / Time Penicillins AdvReac Severe Respiratory Verified 01/14/20 14:38 hydrochlorothiazide AdvReac Unknown Verified 01/14/20 14:38 lisinopril AdvReac Respiratory Verified 01/14/20 14:38 - Social History Does the pt smoke?: No Smoking Status: Never smoker Does the pt drink ETOH?: No Does the pt have substance abuse?: No - Immunizations Immunizations are current?: Yes - POLST Patient has POLST: No PD ED PE EXPANDED - Extremities Extremities: Right toe(s) (Right great toe nailbed with thin amount of white eschar on surrounding borders. Previously documented macerated laceration is now closed. 2 sutures were removed from the nailbed. No significant swelling or erythema of the toe. The toe does remain remain tender to touch. no drainage) Results - Vitals Vitals: Vital Signs - 24 hr 01/14/20 14:36 Temperature 36.4 C L Heart Rate 80 Respiratory 16 Rate Blood Pressure 188/105 H O2 Saturation 98 Oxygen O2 Source Room air PD MEDICAL DECISION MAKING - ED course Complexity details: reviewed results, d/w patient ED course: 2 sutures removed from the right great nail bed. The previously macerated open toe injury appears to be healing well. He has completed a full course of antibiotics. His pain is well managed. Advised him to continue the wound care at home. He is to continue to follow-up with orthopedics Return precautions for concerns of infection discussed Departure - Departure Disposition: 01 Home, Self Care Clinical Impression: Visit for suture removal, Open fracture Condition: Stable Follow-Up: [facility] [Provider Group] Comments: Ritesh your nailbed looks great. Continue the wound care that you have been do ing at home. I would allow the toe to air out a little bit more especially at night. I think it is important that you continue to follow-up with orthopedics as you did have an open fracture of that toe. Please return here if you have increased pain, milky drainage, increased swelling redness of the toe or red streaking.
== END 2020-01-14 15:10 | disposition home or self-care (01) ==
LOC: ED 14:30
DX: S91.211D Laceration without foreign body of right great toe with damage to nail, subsequent encounter (principal); S92.401D Displaced unspecified fracture of right great toe, subsequent encounter for fracture with routine healing; W23.0XXD Caught, crushed, jammed, or pinched between moving objects, subsequent encounter; I10 Essential (primary) hypertension; E11.9 Type 2 diabetes mellitus without complications
CPT/HCPCS: 99281; 99282

== ENCOUNTER 2022-06-30 16:59 | Outpatient (CLI) | payer OTHER ==
--- NOTE | 2022-06-30 21:07 | Ultrasound Report ---
PROCEDURE: Carotid Doppler Complete INDICATIONS: CVA TECHNIQUE: Color and pulse Doppler interrogation was performed of both carotid systems, with image documentation and velocity measurements. COMPARISON: None. FINDINGS: Right side: Brachial blood pressure: 146/89 mm Hg. Common carotid artery peak systolic velocity: 70 cm/sec. Internal carotid artery peak systolic velocity: 60 cm/sec. Internal carotid artery end diastolic velocity: 22 cm/sec. External carotid artery peak systolic velocity: 116 cm/sec. ICA/CCA peak systolic ratio: 0.9 . Ellison scale imaging description: Circumferential mildly hyperechoic thickening of the common carotid artery wall. A sessile calcification of the right carotid bulb causing a minor subjective luminal brendan nosis. Mild sessile calcified plaque extends into the proximal right ICA but without causing signific ant luminal stenosis. No significant alteration of waveform. Percent internal carotid artery stenosis: Less than 50% . Vertebral artery: Flow direction is antegrade. Left side: Brachial blood pressure: 135/80 mm Hg. Common carotid artery peak systolic velocity: 69 cm/sec. Internal carotid artery peak systolic velocity: 84 cm/sec. Internal carotid artery end diastolic velocity: 30 cm/sec. External carotid artery peak systolic velocity: 113 cm/sec. ICA/CCA peak systolic ratio: 1.2 . Ellison scale imaging description: Mild intimal medial thickening. Moderate sessile calcified plaque at the carotid bulb extending into the internal carotid artery causing a subjective luminal stenosis bu t no flow alteration. Mixed calcified and noncalcified plaque causes moderate proximal ICA narrowing and mild spectral broadening of the waveform without velocity elevation Percent internal carotid artery stenosis: Less than, but close to 50% . Vertebral artery: Flow direction is antegrade. IMPRESSION: 1. Less than 50% stenosis of both internal carotid arteries, the left greater than right. 2. Intimal medial thickening bilaterally of the common carotid arteries. 3. Mixed calcified and noncalcified plaque is present. 4. Antegrade vertebral artery flow bilaterally. The estimate of stenosis included in the report of the imaging study was calculated using the NASCET method Reviewed by: Jazmyn Benoit MD on 06/30/2022 9:06 PM PST Approved by: Jazmyn Benoit MD on 06/30/2022 9:06 PM PST Station ID: [id number]
== END 2022-06-30 17:00 | disposition home or self-care (01) ==
LOC: DI 16:59
PROVIDERS: ATTEND Student in an Organized Health Care Education/Training Program
DX: I63.9 Cerebral infarction, unspecified (principal); I65.23 Occlusion and stenosis of bilateral carotid arteries
CPT/HCPCS: 93880

== ENCOUNTER 2023-06-21 17:25 | Emergency (ER) | payer OTHER ==
--- NOTE | 2023-06-21 18:06 | XRAY Report ---
PROCEDURE: Hand 3 View LT INDICATIONS: Trauma TECHNIQUE: 3 views of the hand(s) acquired. COMPARISON: None. FINDINGS: Bones: Bones are demineralized. No fractures or dislocations. No suspicious bony lesions. Mild to moderate interphalangeal joint space narrowing and subchondral sclerosis. Soft tissues: No suspicious soft tissue calcifications or masses. IMPRESSION: No acute bony abnormality. Reviewed by: Cyndie Moore MD on 06/21/2023 6:05 PM [facility] Approved by: Cyndie Moore MD on 06/21/2023 6:05 PM [facility] Station ID: [id number]
--- NOTE | 2023-06-21 18:07 | XRAY Report ---
PROCEDURE: Shoulder 3 View LT INDICATIONS: pain TECHNIQUE: 3 views of the shoulder were acquired. COMPARISON: None. FINDINGS: Bones: No fractures or dislocations. No suspicious bony lesions. Visualized ribs appear intact. Mild acromioclavicular joint degeneration. Soft tissues: No suspicious soft tissue calcifications. The visualized lungs are within normal limi ts. IMPRESSION: No acute bony abnormality. Reviewed by: Cyndie Moore MD on 06/21/2023 6:06 PM [facility] Approved by: Cyndie Moore MD on 06/21/2023 6:06 PM [facility] Station ID: [id number]
--- NOTE | 2023-06-21 20:39 | XRAY Report ---
PROCEDURE: Ribs w/PA Chest LT INDICATIONS: fall, L rib pain TECHNIQUE: 3 views of the left ribs were acquired, along with a single view chest. COMPARISON: None. FINDINGS: Surgical changes and devices: None. Bones and chest wall: There is appearance of minimally displaced ninth rib fracture seen only on one view. No suspicious bony lesions. Overlying soft tissues appear unremarkable. Lungs and pleura: No pleural effusions or pneumothorax. Lungs appear clear. Mediastinum: Mediastinal contours appear normal. Heart size is normal. IMPRESSION: Appearance of questionable ninth rib fracture seen only on one view. Recommend correlation point tend krishna. Reviewed by: Catrachita Richards MD on 06/21/2023 8:38 PM PST Approved by: Catrachita Richards MD on 06/21/2023 8:38 PM PST Station ID: [id number]
[2023-06-21 20:55] VITALS: BP 161/98; O2SAT 97
--- NOTE | 2023-06-21 20:57 | ED Physician Documentation ---
PD HPI UPPER EXT INJURY - Stated complaint Stated Complaint: FALL/L SHOULDER/HAND PX - Chief complaint Chief Complaint: Trauma Ext - History obtained from History obtained from: Patient - History of Present Illness Location: Left, Shoulder, Hand, Other (ribs) Type of injury: Fall Where injury occurred: Home Pain level max: 5 Pain level now: 4 Improved by: Rest Worsened by: Moving, Palpating Contributing factors: No: Anticoagulated, Prior ortho surgery, Prosthetic joint Recently seen: Not recently seen - Additonal information Additional information: 57-year-old male presents to the emergency department after a fall off of the toilet injuring his left shoulder left ribs and left hand. Has a history of a stroke with a residual left-sided deficit. He is not anticoagulated, did not strike his head. Worse with movement, better with rest. He is on oxycodone at home for chronic pain. Review of Systems Constitutional: denies: Fever, Chills GI: denies: Nausea, Vomiting, Diarrhea Skin: denies: Rash Musculoskeletal: denies: Neck pain, Back pain Neurologic: denies: Seizure, Confused, Headache, Head injury, LOC PD PAST MEDICAL HISTORY - Past Medical History Past Medical History: Yes Cardiovascular: Congestive heart failure, Hypertension, High cholesterol, Other Respiratory: Asthma, Shortness of breath, Sleep apnea, CPAP use Neuro: CVA Endocrine/Autoimmune: Type 2 diabetes GI: Diverticulitis, Other : Incontinence, Kidney stones HEENT: Other Psych: Depression, Anxiety, Post traumatic stress disorder Musculoskeletal: Osteoarthritis, Gout, Other Derm: Other - Past Surgical History Past Surgical History: Yes General: Gastric surgery, Colonoscopy, Other - Present Medications Home Medications: Ambulatory Orders Medication Instructions Recorded Confirmed Amlodipine Besylate 10 mg PO DAILY 03/25/13 08/13/17 Atorvastatin Calcium 20 mg PO DAILY 03/25/13 08/13/17 Fluticasone 220 Mcg [Flovent] 1 puffs INH BID 03/25/13 08/13/17 Telmisartan [Micardis] 80 mg PO DAILY 03/25/13 08/13/17 allopurinoL [Allopurinol] 450 mg PO DAILY 03/25/13 08/13/17 carvediloL [Coreg] 25 mg PO BID 03/25/13 08/13/17 Omeprazole [Prilosec] 40 mg PO HS 10/04/13 08/13/17 Beclomethasone Dipropionate [Qvar] 1 puffs INH DAILY PRN 07/23/14 08/13/17 Multivitamin [Multivitamins] 1 cap ORAL DAILY 07/23/14 08/13/17 Oxycodone HCl/Acetaminophen 1 tab ORAL QID PRN 07/23/14 08/13/17 [Percocet 10-325 mg Tablet] Vit D3-Vit K/Berberine/Hops 1 tab ORAL DAILY 07/23/14 07/23/14 [Ostera Tablet] Ibuprofen [Motrin] 800 mg PO Q8H PRN #30 tablet 08/13/17 Oxycodone HCl/Acetaminophen 1 - 2 each PO Q6H PRN #20 tablet 08/13/17 [Percocet 5-325 mg Tablet] Lactulose [Generlac] 10 gm PO Q6HR PRN #200 ml 08/19/17 Hydrocodone/Acetaminophen [Pillsbury 1 each PO Q6HR PRN #20 tablet 12/30/19 5-325 Tablet] cephALEXin [Keflex] 500 mg PO Q6H #28 capsule 12/30/19 - Allergies Allergies/Adverse Reactions: Allergies Allergy/AdvReac Type Severity Reaction Status Date / Time Penicillins AdvReac Severe Respiratory Verified 06/21/23 17:29 hydrochlorothiazide AdvReac Unknown Verified 06/21/23 17:29 lisinopril AdvReac Respiratory Verified 06/21/23 17:29 - Social History Does the pt smoke?: No Smoking Status: Never smoker Does the pt drink ETOH?: No Does the pt have substance abuse?: No - Immunizations Immunizations are current?: Yes - POLST Patient has POLST: No PD ED PE NORMAL - Vitals Vital signs reviewed: Yes - General General: Alert and oriented X 3, No acute distress - HEENT HEENT: Moist mucous membranes - Neck Neck: Supple, no meningeal sign - Cardiac Cardiac: RRR - Respiratory Respiratory: No respiratory distress, Clear bilaterally - Derm Derm: Warm and dry - Extremities Extremities: Other - Neuro Neuro: Alert and oriented X 3 - Free text exam Free text exam: There is mild swelling to the dorsum of the left hand, mild swelling to the left third digit. No gross deformity. No tenderness over the wrist, forearm, elbow or humerus. There is some pain with movement of the left shoulder. No tenderness over the clavicle. There is mild tenderness over the left third and fourth ribs in the midaxillary line. No crepitus. No ecchymosis. Otherwise benign examination of the ribs. Neurovascular intact throughout Results - Vitals Vitals: Vital Signs - 24 hr 06/21/23 06/21/23 17:29 20:50 Temperature 36.8 C 36.9 C Heart Rate 85 76 Respiratory 18 16 Rate Blood Pressure 160/90 H 161/98 H O2 Saturation 100 97 Oxygen O2 Source Room air - Rads (name of study) Left shoulder x-ray Relevant Findings:: Final report received, See rad report Left hand x-ray Relevant Findings:: Final report received, See rad report Left rib x-ray Relevant Findings:: Final report received, See rad report PD Medical Decision Making - ED course Complexity details: reviewed results, re-evaluated patient, considered differential, d/w patient ED course: No acute findings on x-ray of the left shoulder, left hand or left ribs, there was a question of 9th rib fracture on a single view of the rib series. He is not tender at this site. Assume that this is artifact. He declines any pain medication here or for home. He was given a Velcro wrist splint as he was having some pain with movement of the wrist but no bony tenderness or deformity. No head injury. No headache. No loss of consciousness. Not on blood thinne rs. Patient counseled regarding signs and symptoms for which I believe and urgent re-evaluation would be necessary. Patient with good understanding of and agreement to plan and is comfortable going home at this time This document was made in part using voice recognition software. While efforts are made to proofread this document, sound alike and grammatical errors may occur. Departure - Departure Disposition: 01 Home, Self Care Clinical Impression: Sprain of hand, left Qualifiers: Encounter type: initial encounter Qualified Code(s): S63.92XA - Sprain of unspecified part of left wrist and hand, initial encounter Shoulder contusion Qualifiers: Encounter type: initial encounter Laterality: left Qualified Code(s): S40.012A - Contusion of left shoulder, initial encounter Contusion of rib on left side Qualifiers: Encounter type: initial encounter Qualified Code(s): S20.212A - Contusion of left front wall of thorax, initial encounter Condition: Good Instructions: ED Contusion Chest Wall, ED Sprain Hand Follow-Up: DAMON RICH MD [Primary Care Provider] - Comments: The x-rays do not show any acute abnormalities. There are no fractures or dislocations. There may be a small crack in your left ninth rib, but you do not seem to have tenderness in this area and it is only visible on 1 view, therefore suspect this is most likely artifact. Please continue your current medications at home. You can use the Velcro wrist splint as needed for Comfort. You appear to have a sprained finger on your left hand as well, this should improve on its own. Forms: PCP List Discharge Date/Time: 06/21/23 21:05
== END 2023-06-21 21:05 | disposition home or self-care (01) ==
LOC: ED 17:25
DX: S40.012A Contusion of left shoulder, initial encounter (principal); S63.92XA Sprain of unspecified part of left wrist and hand, initial encounter; S20.212A Contusion of left front wall of thorax, initial encounter; W18.11XA Fall from or off toilet without subsequent striking against object, initial encounter; I10 Essential (primary) hypertension
CPT/HCPCS: 99283; 99284